=== PATIENT | female | born 1995 | race Two or more races ===

== ENCOUNTER 2023-07-30 04:14 | Outpatient (CLI) | payer OTHER | END 2023-07-30 04:15 | disposition critical access hospital (66) | LOC: EMS 04:14 | DX: R10.12 Left upper quadrant pain (principal); M54.9 Dorsalgia, unspecified | CPT/HCPCS: A0425; A0429 ==

== ENCOUNTER 2023-07-30 04:32 | Emergency (ER) | payer OTHER ==
[2023-07-30] MEDS ORDERED: MORPHINE 2 MG/ML CARPUJECT IVP STA (04:46)
[2023-07-30] MEDS ORDERED: ONDANSETRON 4 MG/2 ML VIAL IVP STA (04:46)
[2023-07-30] MEDS ORDERED: SODIUM CHLORIDE 0.9% 1,000 ML IV STA (04:46)
[2023-07-30] MEDS ORDERED: FAMOTIDINE 20 MG/2 ML VIAL IVP STA (04:46)
--- NOTE | 2023-07-30 04:50 | ED Physician Documentation ---
History of Present Illness - Stated complaint Stated Complaint: ABD PX/BACK PX - Chief complaint Chief Complaint: Abd Pain - History obtained from History obtained from: Patient - Additonal information Additional information: 28-year-old woman, previously healthy, presents with left upper abdominal pain gradually worsening since 10 AM yesterday, sharp quality radiating to the left flank with associated nausea but no vomiting, diarrhea, urinary symptoms or fever. Patient states pain has been around 8/10 tonight when she could not get comfortable and could not lie still in bed. she notes that she had the flu last week but has since completely recovered. PD PAST MEDICAL HISTORY - Past Medical History Past Medical History: No - Past Surgical History Past Surgical History: No - Present Medications Home Medications: Ambulatory Orders Medication Instructions Recorded Confirmed Ondansetron Odt [Zofran Odt] 4 mg TL Q6H PRN #10 tablet 07/30/23 Oxycodone HCl/Acetaminophen 1 each PO Q4H PRN #10 tablet 07/30/23 [Percocet 10-325 mg Tablet] Tamsulosin [Flomax] 0.4 mg PO DAILY 14 Days #14 tab 07/30/23 - Allergies Allergies/Adverse Reactions: Allergies Allergy/AdvReac Type Severity Reaction Status Date / Time No Known Drug Allergies Allergy Verified 07/30/23 04:43 - Social History Does the pt smoke?: No Smoking Status: Never smoker Does the pt drink ETOH?: No Does the pt have substance abuse?: No - Immunizations Immunizations are current?: Yes - POLST Patient has POLST: No PD ED PE NORMAL - Vitals Vital signs reviewed: Yes - General General: Alert and oriented X 3, No acute distress, Well developed/nourished - HEENT HEENT: Atraumatic, PERRL, EOMI - Neck Neck: Supple, no meningeal sign - Abdomen Abdomen: Non tender, Non distended - Back Back: Other (L CVA ttp) - Derm Derm: Normal color, Warm and dry - Neuro Neuro: Alert and oriented X 3 Results - Vitals Vitals: Vital Signs - 24 hr 07/30/23 07/30/23 04:32 05:48 Temperature 36.5 C 37.2 C Heart Rate 73 66 Respiratory 18 16 Rate Blood Pressure 112/79 125/79 O2 Saturation 100 99 Oxygen O2 Source Room air - Labs Labs: Laboratory Tests 11/06/1307/30/23 07/30/23 04:45 04:45 05:08 WBC 8.6 RBC 4.32 Hgb 13.0 Hct 39.0 MCV 90.3 MCH 30.1 MCHC 33.3 RDW 11.1 L Plt Count 328 MPV 10.2 Neut # (Auto) 5.8 Lymph # (Auto) 1.8 [place] # (Auto) 0.7 Eos # (Auto) 0.2 Baso # (Auto) 0.0 Absolute Nucleated RBC 0.00 Nucleated RBC % 0.0 Sodium Potassium Chloride Carbon Dioxide Anion Gap BUN Creatinine Estimated GFR (MDRD) Glucose Calcium Total Bilirubin AST ALT Alkaline Phosphatase Total Protein Albumin Globulin Albumin/Globulin Ratio Lipase Urine Color YELLOW Urine Clarity CLEAR Urine pH 7.0 Ur Specific [place] 1.015 Urine Protein NEGATIVE Urine Glucose (UA) NEGATIVE Urine Ketones NEGATIVE Urine Occult Blood TRACE-INTA Urine Nitrite NEGATIVE Urine Bilirubin NEGATIVE Urine Urobilinogen 0.2 (NORMAL) Ur Leukocyte Esterase NEGATIVE Ur Microscopic Review NOT INDICATED Urine Culture Comments NOT INDICATED Urine HCG, Qual NEGATIVE 07/30/23 05:08 WBC RBC Hgb Hct MCV MCH MCHC RDW Plt Count MPV Neut # (Auto) Lymph # (Auto) [place] # (Auto) Eos # (Auto) Baso # (Auto) Absolute Nucleated RBC Nucleated RBC % Sodium 136 Potassium 3.9 Chloride 104 Carbon Dioxide 22 Anion Gap 10.0 BUN 14 Creatinine 0.7 Estimated GFR (MDRD) 99 Glucose 103 Calcium 9.9 Total Bilirubin 0.3 AST 24 ALT 17 Alkaline Phosphatase 51 Total Protein 8.2 Albumin 4.7 Globulin 3.5 Albumin/Globulin Ratio 1.3 Lipase 28 Urine Color Urine Clarity Urine pH Ur Specific [place] Urine Protein Urine Glucose (UA) Urine Ketones Urine Occult Blood Urine Nitrite Urine Bilirubin Urine Urobilinogen Ur Leukocyte Esterase Ur Microscopic Review Urine Culture Comments Urine HCG, Qual PD Medical Decision Making - ED course ED course: 28-year-old woman presents with left upper quadrant pain and left flank pain concerning for kidney stone. CBC, abdominal panel, urinalysis and hCG ordered. IV fluids, IV morphine, IV Zofran and Pepcid provided with relief of pain and nausea. CT incorrectly read no stones but I can see at least one at [facility] on the right, possibly another proximal ureteral stone on left. rx sent to pharmacy and referral to urology preovided. return precautions given. Departure - Departure Clinical Impression: Kidney stones Condition: Stable Instructions: Kidney Stones Follow-Up: Mariana Christensen MD [Physician No Access] - Prescriptions: Tamsulosin [Flomax] 0.4 mg PO DAILY 14 Days #14 tab Oxycodone HCl/Acetaminophen [Percocet 10-325 mg Tablet] 1 each PO Q4H PRN #10 tablet PRN Reason: Pain Ondansetron Odt [Zofran Odt] 4 mg TL Q6H PRN #10 tablet PRN Reason: Nausea / Vomiting Comments: You were seen in the emergency department for kidney stones. Electronic prescription was sent to [facility] pharmacy on [address] Please follow-up with urology and return to the emergency department if you have any new or worsening symptoms or other concerns. Forms: PCP List
[2023-07-30 04:51] LABS: BILIRUBIN,URINE NEGATIVE (NEGATIVE); GLUCOSE, URINE (UA) NEGATIVE (NEGATIVE); KETONES,URINE (UA) NEGATIVE (NEGATIVE); LEUKOCYTE ESTERASE, URINE NEGATIVE (NEGATIVE); NITRITE,URINE NEGATIVE (NEGATIVE); OCCULT BLOOD,URINE TRACE-INTA (NEGATIVE); PROTEIN,URINE NEGATIVE (NEGATIVE); UROBILINOGEN,URINE 0.2 (NORMAL) E.U./dL (NORMAL)
[2023-07-30 04:53] LABS: CLARITY,URINE CLEAR (CLEAR); HCG UR QUAL NEGATIVE
[2023-07-30 05:13] LABS: BASOPHILS % (AUTO) 0.3 %; EOSINOPHILS # (AUTO) 0.2 10^3/uL (0.0-0.7); EOSINOPHILS % (AUTO) 2.3 %; LYMPHOCYTES # (AUTO) 1.8 10^3/uL (1.5-3.5); LYMPHOCYTES % (AUTO) 20.9 %; MEAN CORPUSCULAR HEMOGLOBIN 30.1 pg (27.0-31.0); MEAN CORPUSCULAR HGB CONC 33.3 g/dL (32.0-36.0); MEAN CORPUSCULAR VOLUME 90.3 fL (81.0-99.0); MEAN PLATELET VOLUME 10.2 fL (7.9-10.8); MONOCYTES # (AUTO) 0.7 10^3/uL (0.0-1.0); MONOCYTES % (AUTO) 8.4 %; NEUTROPHILS # (AUTO) 5.8 10^3/uL (1.5-6.6); NEUTROPHILS % (AUTO) 67.9 %; PLT - PLATELET COUNT 328 10^3/uL (130-450); RED BLOOD COUNT 4.32 10^6/uL (4.20-5.40); RED CELL DISTRIBUTION WIDTH 11.1 % (12.0-15.0); WHITE BLOOD COUNT 8.6 x10^3/uL (4.8-10.8)
[2023-07-30 05:30] LABS: ALBUMIN 4.7 g/dL (3.2-5.5)
[2023-07-30 05:36] LABS: ALBUMIN/GLOBULIN RATIO 1.3 (1.0-2.2); BILIRUBIN,TOTAL 0.3 mg/dL (0.2-1.0); CALCIUM 9.9 mg/dL (8.5-10.3); CREATININE 0.7 mg/dL (0.6-1.3); POTASSIUM 3.9 mmol/L (3.5-4.5); TOTAL PROTEIN 8.2 g/dL (6.4-8.9)
[2023-07-30] MEDS ORDERED: KETOROLAC 30 MG/ML VIAL IM STA (08:21)
[2023-07-30] MEDS ORDERED: oxyCODONE 5 MG TABLET PO STA (08:21)
--- NOTE | 2023-07-30 08:40 | ED Physician Documentation ---
ED Addendum - Addendum Addendum: 07/30/23 08:36 The patient was slated for discharge but did asked to talk with the physician. Her pain is in the left flank and hurts with movement and some with breathing. She does not feel short of breath. She had a upper respiratory infection about a week and a bit ago with still some mild cough persisting. She notes she was told the kidney stone was on the right and she is not having pain to that side. I reviewed the CT scan and I do see what the prior physician was seen with the calcification that appears at the distal ureter with mild hydroureter but no hydronephrosis on the right. No abnormalities on the left and the CT report just came through from the radiologist stating no acute abnormality (not even comment on the stone). She does have tenderness to the left flank at the lower ribs area. The CT scan did involve the lower part of the lung portillo that were clear. I did have a chest x-ray performed which appeared normal. No signs of effusion or pneumothorax nor pneumonia. Her urine and blood test had been normal. At this point unclear the cause of the pain. It has a musculoskeletal component though some element of pleurisy. Her vital signs are good and there is no leg swelling or calf tenderness. She has not had dyspnea. She is not hypoxic nor tachycardic. I will add some anti-inflammatories to her previously prescribed medicines. The pain medicine and nausea medicine are still appropriate. Plus minus on the tamsulosin.
--- NOTE | 2023-07-30 08:55 | XRAY Report ---
PROCEDURE: Chest 1 View X-Ray INDICATIONS: left lower thoracic pain TECHNIQUE: One view of the chest was acquired. COMPARISON: None. FINDINGS: Surgical changes and devices: None. Lungs and pleura: No pleural effusions or pneumothorax. Lungs are clear. Mediastinum: Mediastinal contours appear normal. Heart size is normal. Bones and chest wall: No suspicious bony lesions. Overlying soft tissues appear unremarkable. IMPRESSION: No acute cardiopulmonary process. Reviewed by: Bro Wright MD on 07/30/2023 8:53 AM [facility] Approved by: Bro Wright MD on 07/30/2023 8:53 AM [facility] Station ID: [id number]
--- NOTE | 2023-07-30 08:59 | CT Report ---
PROCEDURE: ABDOMEN/PELVIS WO INDICATIONS: L flank pain, hematuria TECHNIQUE: A CT scan of the abdomen and pelvis was performed without the use of intravenous contrast. Images we re recorded and evaluated at appropriate window settings. Reformats: coronal and sagittal. For radiat ion dose reduction, the following was used: automated exposure control, adjustment of mA and/or kV ac cording to patient size. COMPARISON: None. FINDINGS: Image quality: Good Lower chest: Basal scarring and atelectasis. Heart size is within normal limits. Solid organs: The liver is unremarkable. Gallbladder is unremarkable. No pathologic dilation of the b iliary system or pancreatic duct. No splenomegaly. No adrenal nodules. No hydronephrosis. No obstructing calcified stone. Right-sided pelvic calcification is probably a phl ebolith. Vessels and lymph nodes: No abdominal aortic aneurysm. No pathologic lymphadenopathy by size criteria . Bowel and peritoneum: No evidence of small bowel obstruction. Appendix is nondilated. There is some f ecal eyes loops of small bowel in the lower abdomen, likely due to slow transit. Body wall: Unremarkable. Tiny fat-containing umbilical hernia. Pelvis: No calcified bladder stone. Reproductive organs are unremarkable on limited CT evaluation. Bones: No acute or suspicious osseous finding. IMPRESSION: No calcified stone or hydronephrosis to explain left flank pain. No acute findings in the abdomen/pel vis on this noncontrast study. Other findings as above. Agree with prelim report. Reviewed by: Miguel Guevara MD on 07/30/2023 8:57 AM [facility] Approved by: Miguel Guevara MD on 07/30/2023 8:57 AM PST Station ID: [id number]
[2023-07-30 09:27] VITALS: BP 112/74; O2SAT 99
== END 2023-07-30 09:26 | disposition home or self-care (01) ==
LOC: ED 04:32
DX: N20.0 Calculus of kidney (principal)
CPT/HCPCS: 36415; 71045; 74176; 80053; 81003; 81025; 83690; 85025; 96361; 96372; 96374; 99285; A9270; 81001; 87086